=== PATIENT | male | born 1970 | race Caucasian/White ===

== ENCOUNTER → 2016-12-25 | Outpatient (CLI) | payer BC ==
[~2016-12-25] MED LIST: MULT-506 PO
== END | disposition home or self-care (01) ==
LOC: C.LABSPEC 10:34
PROVIDERS: ATTEND Nurse Practitioner
DX: J02.9 Acute pharyngitis, unspecified (principal)

== ENCOUNTER → 2017-04-28 | Outpatient (CLI) | payer BC ==
--- NOTE | 2017-04-28 10:03 | DIAGNOSTIC IMAGING REPORT ---
TESTICULAR ULTRASOUND HISTORY: N50.9 Testicular [id number] COMPARISON: None. FINDINGS: Right testis: 5.1 x 3.7 x 2.0 cm. There are no intratesticular masses. Normal color flow. No hydrocele. There are few scattered microliths. A few small cysts within the epididymal head measuring up to 3 mm. Left testis: 4.5 x 3.7 x 2.3 cm. A few scattered microliths. A 2 mm cyst within the epididymal head. A 7 mm heterogeneous nodule within the tail of the left epididymis. There are no intratesticular masses. Normal color flow. No hydrocele. IMPRESSION: 1. No testicular masses. 2. A few scattered microliths within the testes. 3. Bilateral epididymal cysts. 4. A 7 mm heterogeneous nodule within the tail of the left epididymis. Statistically this represents a benign nodule and may represent an adenomatoid nodule or granuloma. Electronically signed by: Mike Stoner M.D. 04/28/2017 10:01 AM Dictated Date/Time: 04/28/2017 9:59 AM
== END | disposition home or self-care (01) ==
LOC: C.ULTR 08:54
PROVIDERS: ATTEND Family Medicine
DX: N50.3 Cyst of epididymis (principal)